=== PATIENT | female | born 1950 | race Two or more races ===

== ENCOUNTER 2019-01-07 17:53 | Observation (INO) | payer MEDICARE, MEDICAID ==
[~2019-01-07] VITALS: Ht 170.2 cm; Wt 76.4 kg
--- NOTE | 2019-01-07 18:25 | NUR ---
Pt to room with steady independent gait, family member at bedside. Urine sample provided by patient, labeled and sent to lab. Denies any needs at this time. Chart up for provider review.
[2019-01-07] MEDS ORDERED: SODIUM CHLORIDE FLUSH 10ML SYR IVF ONE (19:00)
[2019-01-07] MEDS ORDERED: MAALOX/HYOSCYAMINE/LIDOCAINE 45 ML BTL PO ONE (19:00)
[2019-01-07] MEDS ORDERED: ALBUTEROL/IPRATROPIUM 2.5MG/0.5MG, 3 ML NPPB ONE (19:00)
[2019-01-07] MEDS ORDERED: FAMOTIDINE 20 MG TABLET PO ONE (19:00)
[2019-01-07] MEDS ORDERED: ASPIRIN 81 MG TABLET CHEW PO ONE (19:00)
[2019-01-07] MEDS ORDERED: ASPIRIN 81 MG TABLET CHEW ONE (19:04)
[2019-01-07] MEDS ORDERED: FAMOTIDINE 20 MG TABLET ONE (19:04)
[2019-01-07] MEDS ORDERED: MAALOX/HYOSCYAMINE/LIDOCAINE 45 ML BTL ONE (19:04)
[2019-01-07] MEDS ORDERED: ALBUTEROL/IPRATROPIUM 2.5MG/0.5MG, 3 ML ONE (19:05)
[2019-01-07 19:14] LABS: BASOPHILS # (AUTO) 0.02 x10^3/uL (0-0.1); BASOPHILS % (AUTO) 1 % (0-1); EOSINOPHILS # (AUTO) 0.58 x10^3/uL (0-0.4); EOSINOPHILS % (AUTO) 12 % (1-7); LYMPHOCYTES # (AUTO) 1.26 x10^3/uL (1-3.4); LYMPHOCYTES % (AUTO) 25 % (22-44); MD NO; MEAN CORPUSCULAR HEMOGLOBIN 32.8 pg (27.0-34.8); MEAN CORPUSCULAR HGB CONC 33.3 g/dL (32.4-35.8); MEAN CORPUSCULAR VOLUME 98.5 fL (80-100); MEAN PLATELET VOLUME 7.5 fL (7.4-10.4); MONOCYTES # (AUTO) 0.29 x10^3/uL (0.2-0.8); MONOCYTES % (AUTO) 6 % (2-9); NEUTROPHILS # (AUTO) 2.84 x10^3/uL (1.8-6.8); NEUTROPHILS % (AUTO) 57 % (42-75); PLATELET COUNT 254 x10^3/uL (130-400); RED BLOOD COUNT 4.37 x10^6/uL (3.82-5.3); RED CELL DISTRIBUTION WIDTH 13.6 % (9.6-15.2)
[2019-01-07 19:22] LABS: ALBUMIN 3.4 g/dL (3.4-5.0); ANION GAP 7 mmol/L (5-15); CALCIUM 9.5 mg/dL (8.5-10.1); CHLORIDE 107 mmol/L (98-107)
[2019-01-07 19:28] LABS: ALANINE AMINOTRANSFERASE 21 U/L (12-78); ALKALINE PHOSPHATASE 52 U/L (45-117); BILIRUBIN,TOTAL 0.5 mg/dL (0.2-1.0); CREATININE 1.07 mg/dL (0.55-1.02); TOTAL PROTEIN 7.1 g/dL (6.4-8.2); TROPONIN I < 0.015 ng/mL (0.000-0.045)
[2019-01-07] MEDS ORDERED: ALBU2.5V11 NEB (20:23)
[2019-01-07] MEDS ORDERED: CALCIUM (20:23)
[2019-01-07] MEDS ORDERED: UMEC1DIS BC (20:23)
[2019-01-07] MEDS ORDERED: CHOL400C PO (20:23)
[2019-01-07] MEDS ORDERED: FLUT9.9S NS (20:23)
[2019-01-07] MEDS: HEPARIN 5,000 UNITS/ML, 1ML SQ SCH (21:00)
[2019-01-07] MEDS ORDERED: ACETAMINOPHEN 325 MG TABLET PO PRN (21:00)
[2019-01-07 21:23] LABS: MICROSCOPIC NOT IND
[2019-01-07 21:25] LABS: CULTURE INDICATED? NO
[2019-01-07] MEDS ORDERED: NITROGLYCERIN 0.4 MG BOTTLE (25 TABS) SL PRN (21:30)
[2019-01-07 21:56] VITALS: BP 145/78
[2019-01-07 22:59] LABS: CHOLESTEROL, TOTAL 221 mg/dL (140-239); TRIGLYCERIDES 61 mg/dL (50-200); VLDL CHOLESTEROL 12 mg/dL (0-25)
[2019-01-07 23:02] LABS: CHOL/HDL RATIO 3.5; HDL CHOL % 29 % (28-40); HDL CHOLESTEROL (DIRECT) 64 mg/dL (40-60); LDL CHOLESTEROL,CALCULATED 145 mg/dL (54-169); LDL/HDL RATIO 2.3 (0.5-3.0); TROPONIN I < 0.015 ng/mL (0.000-0.045)
[2019-01-07 23:04] LABS: HEMOGLOBIN A1C 5.8 % (4.2-6.3)
[2019-01-07] MEDS ORDERED: MONTELUKAST 10 MG TABLET PO SCH (23:30)
[2019-01-08] MEDS: ALBUTEROL/IPRATROPIUM 2.5MG/0.5MG, 3 ML NPPB SCH ×3 (00:20→07:00)
[2019-01-08 02:07] VITALS: BP 148/88
[2019-01-08 03:38] LABS: BASOPHILS # (AUTO) 0.04 x10^3/uL (0-0.1); BASOPHILS % (AUTO) 1 % (0-1); EOSINOPHILS # (AUTO) 0.81 x10^3/uL (0-0.4); EOSINOPHILS % (AUTO) 15 % (1-7); LYMPHOCYTES # (AUTO) 1.22 x10^3/uL (1-3.4); LYMPHOCYTES % (AUTO) 23 % (22-44); MD NO; MEAN CORPUSCULAR HEMOGLOBIN 32.9 pg (27.0-34.8); MEAN CORPUSCULAR HGB CONC 33.5 g/dL (32.4-35.8); MEAN CORPUSCULAR VOLUME 98.5 fL (80-100); MEAN PLATELET VOLUME 7.5 fL (7.4-10.4); MONOCYTES % (AUTO) 6 % (2-9); NEUTROPHILS # (AUTO) 2.89 x10^3/uL (1.8-6.8); NEUTROPHILS % (AUTO) 55 % (42-75); PLATELET COUNT 249 x10^3/uL (130-400); RED BLOOD COUNT 4.24 x10^6/uL (3.82-5.3); RED CELL DISTRIBUTION WIDTH 13.7 % (9.6-15.2)
[2019-01-08 03:50] LABS: ANION GAP 7 mmol/L (5-15); CALCIUM 8.9 mg/dL (8.5-10.1); CHLORIDE 110 mmol/L (98-107); CREATININE 0.93 mg/dL (0.55-1.02)
[2019-01-08 03:55] LABS: TROPONIN I < 0.015 ng/mL (0.000-0.045)
[2019-01-08] MEDS: HEPARIN 5,000 UNITS/ML, 1ML SQ SCH ×2 (05:00→13:19)
[2019-01-08 07:25] VITALS: BP 139/85
[2019-01-08] MEDS ORDERED: PANTOPROZOLE 40MG TABLET PO SCH ×2 (07:30→21:00)
[2019-01-08] MEDS ORDERED: ALBUTEROL/IPRATROPIUM 2.5MG/0.5MG, 3 ML NPPB PRN (11:00)
[2019-01-08] MEDS ORDERED: SIMV20TA PO (13:58)
[2019-01-08] MEDS ORDERED: IPRATROPIUM 0.5 MG/2.5 ML INHA HHN SCH (15:00)
== END 2019-01-08 15:00 | disposition home or self-care (01) ==
LOC: ED 18:31 → EDIP 19:49 → INTOOBSV 19:49 → 5SO 20:32 → DCLOUNGE 01-08 14:45
PROVIDERS: ADMIT Internal Medicine; ATTEND Internal Medicine
DX: R07.89 Other chest pain (principal); J44.1 Chronic obstructive pulmonary disease with (acute) exacerbation; M81.0 Age-related osteoporosis without current pathological fracture; J30.2 Other seasonal allergic rhinitis; Z87.891 Personal history of nicotine dependence; Z79.899 Other long term (current) drug therapy
CPT/HCPCS: 36415; 71045; 80048; 80053; 80061; 81003; 83036; 83735; 83880; 84100; 84484; 85025; 93005; 93017; 94640; 99284; G0378; J7620

== ENCOUNTER → 2020-07-22 | Outpatient (CLI) | payer MEDICARE, MEDICAID ==
[~2020-07-22] MED LIST: ALBU2.5V11 NEB; CALCIUM; CHOL400C PO; FLUT9.9S NS; SIMV20TA PO; UMEC1DIS BC
== END | disposition home or self-care (01) ==
LOC: CVU 07:58
PROVIDERS: ATTEND Internal Medicine
DX: I35.8 Other nonrheumatic aortic valve disorders (principal); R06.00 Dyspnea, unspecified
CPT/HCPCS: 93017; 93306; 93356

== ENCOUNTER → 2020-08-01 | Outpatient (CLI) | payer MEDICARE, MEDICAID | END | disposition home or self-care (01) | LOC: CFH 10:53 | PROVIDERS: ATTEND Internal Medicine | DX: Z12.31 Encounter for screening mammogram for malignant neoplasm of breast (principal); M81.0 Age-related osteoporosis without current pathological fracture | CPT/HCPCS: 77063; 77067; 77080 ==

== ENCOUNTER → 2020-08-18 | Outpatient (CLI) | payer MEDICARE, MEDICAID | END | disposition home or self-care (01) | LOC: CFH 12:55 | PROVIDERS: ATTEND Registered Nurse | DX: R05 Cough (principal); J34.89 Other specified disorders of nose and nasal sinuses | CPT/HCPCS: 70490 ==